=== PATIENT | female | born 1955 | race Caucasian/White ===

== ENCOUNTER 2018-08-30 08:13 | Emergency (ER) | payer OTHER ==
[~2018-08-30] VITALS: Ht 162.6 cm; Wt 90.7 kg
[2018-08-30] MEDS ORDERED: COZAAR50 MG PO (08:47)
== END 2018-08-30 12:15 | disposition home or self-care (01) ==
LOC: ER 08:13
DX: T78.49XA Other allergy, initial encounter (principal); R21 Rash and other nonspecific skin eruption